=== PATIENT | male | born 1975 | race Caucasian/White ===

== ENCOUNTER 2016-08-11 06:30 | Day surgery (SDC) | payer BC ==
[2016-08-10 13:36] VITALS: BMI 33.9
[2016-08-11 06:59] VITALS: TEMP 97.7
[2016-08-11] MEDS ORDERED: DEXAMETHASONE SOD PHOSPHATE 4 MG/1 ML VIAL ONE (07:38)
[2016-08-11] MEDS ORDERED: BUPIVACAINE HCL/PF 0.25% (2.5MG/ML) 10 ML VIAL ONE (07:41)
[2016-08-11] MEDS ORDERED: PROPOFOL 20 ML ONE (08:22)
[2016-08-11] MEDS ORDERED: BETAMET ACET/BETAMET NA PH 30 MG/5 ML VIAL NR ONE ×2 (08:35)
[2016-08-11] MEDS ORDERED: LIDOCAINE HCL 1%, 10 MG/ML (50 mL VIAL) IJ ONE ×2 (08:35)
[2016-08-11] MEDS ORDERED: BUPIVACAINE HCL/PF 0.25% (2.5MG/ML) 10 ML VIAL IJ ONE ×2 (08:35)
[2016-08-11] MEDS ORDERED: IOHEXOL 180 MG/1 ML ML IJ ONE ×2 (08:35)
--- NOTE | 2016-08-11 09:44 | HP ---
Admitting History and Physical - Admission Chief Complaint: 1. Low back pain - Smoking History Smoking history: Current every day smoker Have you smoked in the past 12 months: Yes Aproximately how many cigarettes per day: 15 - Alcohol/Substance Use Hx Alcohol Use: Yes (WEEKLY) Home Medications - Allergies Allergies/Adverse Reactions: Allergies Allergy/AdvReac Type Severity Reaction Status Date / Time No Known Drug Allergies Allergy Verified 08/11/16 07:05 PEANUTS Allergy Severe Rash Uncoded 08/11/16 07:05 - Home Medications Home Medications: Ambulatory Orders Ibuprofen 800 mg PO PRN 08/10/16 Ibuprofen [Advil -] 400 mg PO PRN PRN 08/10/16 Pantoprazole Sodium [Protonix -] 40 mg PO PRN 08/10/16 Ascorbic Acid [Vitamin C -] 1,000 mg PO DAILY 08/11/16 Cholecalciferol (Vitamin D3) [Vitamin D3 -] 1,000 unit PO DAILY 08/11/16 Cyanocobalamin [Vitamin B12 -] 1,000 mcg PO DAILY 08/11/16 Multivitamins [Tab-A-Vit -] 1 tab PO DAILY 08/11/16 Physical Examination Vital Signs: Vital Signs Temperature 97.7 F 08/11/16 07:01 Pulse Rate 66 08/11/16 09:05 Respiratory Rate 18 08/11/16 09:05 Blood Pressure 107/67 08/11/16 09:05 O2 Sat by Pulse Oximetry (%) 99 08/11/16 09:05 Assessment/Plan A: 1. Low back pain 2. Lumbar stenosis 3. Lumbar Adjacent level disease 4. SI joint pain P: 1. Bilateral L3/4 facet joint injections and bilateral SI joint injections.
[2016-08-11 10:03] VITALS: BP 114/70; PULSE 71
== END 2016-08-11 10:00 | disposition home or self-care (01) ==
LOC: JASU-SURG 06:30
PROVIDERS: ATTEND Physical Medicine & Rehabilitation
PROC: 3E0T33Z Introduction of Anti-inflammatory into Peripheral Nerves and Plexi, Percutaneous Approach (ICD-10-PCS; 2016-08-11)
PROC: BR16YZZ Fluoroscopy of Lumbar Facet Joint(s) using Other Contrast (ICD-10-PCS; 2016-08-11)
PROC: 3E0T3BZ Introduction of Anesthetic Agent into Peripheral Nerves and Plexi, Percutaneous Approach (ICD-10-PCS; principal; 2016-08-11 08:00)
DX: M51.16 Intervertebral disc disorders with radiculopathy, lumbar region (principal); M51.36 Other intervertebral disc degeneration, lumbar region
CPT/HCPCS: 76000-TC

== ENCOUNTER 2016-11-22 18:06 | Emergency (ER) | payer BC ==
[2016-11-22 18:11] VITALS: BP 134/91; PULSE 86; TEMP 98.4; BMI 34.5
--- NOTE | 2016-11-22 18:19 | PDOC ---
History of Present Illness <Josue Morales - Last Filed: 11/22/16 18:36> - History of Present Illness Initial Comments: 11/22/16 18:43 Patient is a 41 year old male with no significant medical hx who is presenting to the ED with right lower extremity pain and swelling for one week. One week ago the patient was hit with a baseball that made contact with his right mid poon. Since then, he's had redness and swelling to the area. The patient grew concerned when the swelling descended to his ankle and developed pain and swelling to his right calf anteriorly. He states that his calf is very tender to touch and vocalized concern for a blood clot. Patient has been able to bear weight and walk on his leg. Denies chest pain, shortness of breath, cough, lightheadedness, nausea, weakness, nausea, or vomiting. Denies any history of cardiac or lung disease. Social Hx: Pack a day smoker for 20 years. 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 Other Medical Hx: Month long admission for high fevers (reported 106.3) that was determined of unknown origin. (2012) Allergies: NKDA. Peanuts. 11/22/16 18:51 <Rhona Grayson - Last Filed: 11/22/16 19:14> - General Chief Complaint: Pain, Acute Stated Complaint: RIGHT LOWER LEG PAIN Time Seen by Provider: 11/22/16 18:10 Past History - Past Medical History Anemia: No Asthma: Yes Cancer: No Cardiac Disorders: No CVA: Yes COPD: No CHF: No Dementia: Yes Diabetes: Yes GI Disorders: Yes Disorders: No HTN: No Hypercholesterolemia: No Liver Disease: No Seizures: No Thyroid Disease: No - Surgical History Neurologic Surgery: Yes (fusion [id number]) Orthopedic Surgery: Yes (cervical sxs) - Immunization History Td Vaccination: Yes Immunization Up to Date: Yes - Psycho/Social/Smoking Cessation Hx Anxiety: No Suicidal Ideation: No Smoking Status: Yes Smoking History: Current every day smoker Have you smoked in the past 12 months: Yes Number of Cigarettes Smoked Daily: 20 Information on smoking cessation initiated: Yes 'Breaking Loose' booklet given: 11/22/16 Hx Alcohol Use: Yes Drug/Substance Use Hx: No Substance Use Type: Alcohol Hx Substance Use Treatment: No <Josue Morales J - Last Filed: 11/22/16 18:36> <Rhona Grayson - Last Filed: 11/22/16 19:14> - Past Medical History Allergies/Adverse Reactions: Allergies Allergy/AdvReac Type Severity Reaction Status Date / Time No Known Drug Allergies Allergy Verified 11/22/16 18:07 PEANUTS Allergy Severe Rash Uncoded 08/11/16 07:05 Home Medications: Ambulatory Orders NK [No Known Home Medication] 11/22/16 Trauma Specific PMHX - Complaint Specific PMHX Back Injury: Yes Neck Injury: Yes <Josue Morales - Last Filed: 11/22/16 18:36> Review of Systems - Review of Systems Comments:: 11/22/16 18:52 CONSTITUTIONAL: Absent: fever, chills, diaphoresis, generalized weakness, malaise, loss of appetite HEENT: Absent: rhinorrhea, nasal congestion, throat pain, throat swelling, difficulty swallowing, mouth swelling, ear pain, eye pain, visual changes CARDIOVASCULAR: Absent: chest pain, syncope, palpitations, irregular heart rate, lightheadedness , peripheral edema RESPIRATORY: Absent: cough, shortness of breath, dyspnea with exertion, orthopnea, wheezing, stridor, hemoptysis GASTROINTESTINAL: Absent: abdominal pain, abdominal distension, nausea, vomiting, diarrhea, constipation, melena, hematochezia GENITOURINARY: Absent: dysuria, frequency, urgency, hesitancy, hematuria, flank pain, genital pain MUSCULOSKELETAL: Present: right calf tenderness, redness, swelling. Right poon redness. Right ankle swelling. Absent: myalgia, arthralgia SKIN: Absent: rash, itching, pallor HEMATOLOGIC/IMMUNOLOGIC: Absent: easy bleeding, easy bruising, lymphadenopathy, frequent infections ENDOCRINE: Absent: unexplained weight gain, unexplained weight loss, heat intolerance, cold intolerance NEUROLOGIC: Absent: headache, focal weakness or paresthesia, dizziness, unsteady gait, seizure, mental status changes, bladder or bowel incontinence. PSYCHIATRIC: Absent: anxiety, depression, suicidal or homicidal ideation, hallucinations <Rhona Grayson - Last Filed: 11/22/16 19:14> *Physical Exam - Vital Signs Last Vital Signs Temp Pulse Resp BP Pulse Ox 98.4 F 86 18 134/91 100 11/22/16 18:07 11/22/16 18:07 11/22/16 18:07 11/22/16 18:07 11/22/16 18:07 <Josue Morales - Last Filed: 11/22/16 18:36> - Vital Signs Last Vital Signs Temp Pulse Resp BP Pulse Ox 98.4 F 86 18 134/91 100 11/22/16 18:07 11/22/16 18:07 11/22/16 18:07 11/22/16 18:07 11/22/16 18:07 - Physical Exam Comments: 11/22/16 18:54 GENERAL: Well developed, well nourished. Awake and alert. No acute distress. HEENT: Normocephalic, atraumatic. PERRLA, EOMI. No conjunctival pallor. Sclera are non- icteric. Moist mucous membranes. Oropharynx is clear. NECK: Supple. Full ROM. No JVD. Carotid pulses 2+ and symmetric, without bruits. No thyromegaly. No lymphadenopathy. CARDIOVASCULAR: Regular rate and rhythm. No murmurs, rubs, or gallops. Distal pulses are 2+ and symmetric. PULMONARY: Normal respiratory rate, O2Sat is 100%.No evidence of respiratory distress. Lungs clear to auscultation bilaterally. No wheezing, rales or rhonchi. ABDOMINAL: Soft. Non-tender. Non-distended. No rebound or guarding. No organomegaly. Normoactive bowel sounds. MUSCULOSKELETAL: Normal range of motion at all joints. No bony deformities or tenderness. No CVA tenderness. EXTREMITIES: Trace edema and ecchymosis to the right ankle without any erythema or warmth. The ankle is nontender and is not red or warm. There is a hematoma of the mid calf medially over the tibia of approximately 3 cm in size. It is tender and mildly erythematous but not warm. There is also tenderness, swelling, erythema and warmth of the lateral calf measuring approximately 8 cm in diameter. No posterior calf swelling or tenderness. No cords. Homans sign is negative. Pulses are full. Capillary refill is intact to the toes. No distal sensory or motor deficits. SKIN: No lacerations, abrasions, or sign of skin injury. Warm and dry. Normal capillary refill. No rashes. No jaundice. NEUROLOGICAL: Alert, awake, appropriate. Cranial nerves 2-12 intact. Normal speech. Gait is normal without ataxia. PSYCHIATRIC: Cooperative. Good eye contact. Appropriate mood and affect. <Rhona Grayson - Last Filed: 11/22/16 19:14> ED Treatment Course - RADIOLOGY Radiograph Interpretation: 11/22/16 19:13 Right Leg X-Ray Impression: No acute fracture or dislocation is seen. There is suggestion of soft tissue swelling in the calf. Correlate clinically. Reported By: Rosaura Connolly MD <Rhona Grayson - Last Filed: 11/22/16 19:14> *DC/Admit/Observation/Transfer - Discharge Dispostion Admit: No <Josue Morales - Last Filed: 11/22/16 18:36> - Attestations Scribe Attestion: 11/22/16 18:59 Documentation prepared by Rhona Grayson, acting as medical services assistant for Josue Marina MD. <Rhona Grayson - Last Filed: 11/22/16 19:14> Diagnosis at time of Disposition: Hematoma Contusion of right calf Qualifiers: Encounter type: initial encounter Qualified Code(s): S80.11XA - Contusion of right lower leg, initial encounter - Discharge Dispostion Condition at time of disposition: Stable - Referrals Referrals: Armani Leong MD [Staff Physician] - 3 days - Patient Instructions Printed Discharge Instructions: Contusion, DI for Hematoma (Bruise), How to Apply an Diego Wrap, How to Use Crutches Additional Instructions: Rest elevation and heat See rx specialist for further evaluation and treatment as directed. - Post Discharge Activity Work/School Note: Back to Work
== END 2016-11-22 19:25 | disposition home or self-care (01) ==
LOC: FER 18:06
DX: S80.11XA Contusion of right lower leg, initial encounter (principal); F17.210 Nicotine dependence, cigarettes, uncomplicated; J45.909 Unspecified asthma, uncomplicated; E11.9 Type 2 diabetes mellitus without complications; Z86.73 Personal history of transient ischemic attack (TIA), and cerebral infarction without residual deficits; W21.03XA Struck by baseball, initial encounter; Y93.64 Activity, baseball; Y92.320 Baseball field as the place of occurrence of the external cause
CPT/HCPCS: 73590-TC-RT; 93971-TC; 99281-25

== ENCOUNTER 2022-04-06 10:49 | Emergency (ER) | payer BC ==
[2022-04-06 11:12] VITALS: BP 148/102; PULSE 95; RESP 20; TEMP 98.2; BMI 34.5
[2022-04-06] MEDS ORDERED: IBUPROFEN 400 MG TABLET (FP) PO ONE ×3 (11:19→11:26)
[2022-04-06 11:52] LABS: HEMATOCRIT 46.6 % (35.4-49); HEMOGLOBIN 16.6 G/dL (11.7-16.9); MCH 30.7 pg (25.7-33.7); MCHC 35.7 g/dl (32.0-35.9); MEAN CELL VOLUME 85.9 fl (80-96); MEAN PLT VOLUME 10.5 fl (7.5-11.1); PLATELET COUNT 103.8 10^3/uL (134-434); RBC 5.42 10^6/uL (4.00-5.60); RDW 14.1 % (11.9-15.9); WHITE BLOOD COUNT 7.2 10^3/uL (4.0-10.8)
[2022-04-06 11:59] LABS: ALBUMIN 4.2 g/dl (3.4-5.0); BILIRUBIN,TOTAL 0.9 mg/dl (0.2-1); CALCIUM 9.3 mg/dl (8.5-10); CREATININE 0.9 mg/dl (0.55-1.3); TOT PROT 7.2 g/dl (6.4-8.2)
[2022-04-06 13:11] LABS: PLATELET ESTIMATE DECREASED
== END 2022-04-06 14:14 | disposition home or self-care (01) ==
LOC: FER 10:49
DX: R07.9 Chest pain, unspecified (principal)
CPT/HCPCS: 36415; 71045-TC-FY; 80053; 84484; 85027; 93005; 99285-25

== ENCOUNTER 2023-08-28 19:15 | Emergency (ER) | payer BC ==
[2023-08-28 19:32] VITALS: BP 130/93; PULSE 93; RESP 20; TEMP 98.2; BMI 34.8
[2023-08-28] MEDS: IBUPROFEN 600 MG TABLET (FP) PO ONE (19:59)
[2023-08-28] MEDS ORDERED: IBUPROFEN 600 MG TABLET (FP) PO ONE (20:00)
== END 2023-08-28 21:06 | disposition home or self-care (01) ==
LOC: FER 19:15
DX: S90.31XA Contusion of right foot, initial encounter (principal); W20.8XXA Other cause of strike by thrown, projected or falling object, initial encounter
CPT/HCPCS: 73630-TC-RT-FY; 99283-25